=== PATIENT | male | born 1990 | race Hispanic/Latino ===

== ENCOUNTER 2019-09-06 01:52 | Inpatient (IN) | payer SELFPAY ==
[2019-09-06] MEDS ORDERED: MORPHINE 4 MG/ML SYR ONE (02:43)
[2019-09-06] MEDS ORDERED: ONDANSETRON 4 MG/2 ML VIAL ONE ×2 (02:43→09:29)
[2019-09-06] MEDS ORDERED: NA CHLORIDE 0.9% 1,000 ML ONE (02:43)
[2019-09-06] MEDS ORDERED: FAMOTIDINE 20 MG/2 ML VIAL IV ONE (02:43)
[2019-09-06 03:13] LABS: Basophils % 0.2 % (0-1.3); Hematocrit 46.5 % (39.6-49.0); Lymphocytes % 16.1 % (15.3-44.8); MPV 7.7 fL (7.6-11.3); RBC Red Blood Cell Count 5.24 M/uL (4.33-5.43)
[2019-09-06 03:19] LABS: Albumin 4.1 g/dL (3.4-5.0); Bilirubin Direct 0.2 mg/dL (0-0.2); Bilirubin Total 0.6 mg/dL (0.2-1.0); Potassium 3.7 mmol/L (3.5-5.1); Protein, Total 7.6 g/dL (6.4-8.2)
--- NOTE | 2019-09-06 05:21 | ER ---
Nurse's Notes [facility] Name: Mariusz Brown Age: 29 yrs Sex: Male : 1990 Arrival Date: 09/06/2019 Time: 02:08 Bed 13 Private MD: Diagnosis: Abdominal tenderness;Acute appendicitis;Elevated white blood cell count Presentation: 09/06 02:24 Presenting complaint: Patient states: "I think I have food poisoning" Abd pain started dm5 4 hours ago, vomited 7 times since this morning. the first three times "I forced myself to vomit". Transition of care: patient was not received from another setting of care. Onset of symptoms was September 06, 2019. Risk Assessment: Do you want to hurt yourself or someone else?. 02:24 Acuity: TOYIN 3 dm5 02:24 Method Of Arrival: Ambulatory dm5 03:09 Initial Sepsis Screen: Does the patient meet any 2 criteria? No. Patient's initial sepsis screen is negative. Does the patient have a suspected source of infection? Yes: Acute abdominal pain. Care prior to arrival: None. Triage Assessment: 03:08 General: Behavior is calm, cooperative, appropriate for age. Historical: - Allergies: 02:26 No Known Allergies; dm5 - Home Meds: 02:26 None [Active]; dm5 - PMHx: 02:26 None; dm5 - PSHx: 02:26 None; dm5 - Immunization history:: Adult Immunizations not up to date. - Social history:: Smoking status: Patient/guardian denies using. - Family history:: not pertinent. - Ebola Screening: : Patient negative for fever greater than or equal to 101.5 degrees Fahrenheit, and additional compatible Ebola Virus Disease symptoms Patient denies exposure to infectious person. Screenin:05 Abuse screen: Denies threats or abuse. Denies injuries from another. Nutritional screening: No deficits noted. Tuberculosis screening: No symptoms or risk factors identified. Fall Risk None identified. Assessment: 03:03 General: Appears in no apparent distress. uncomfortable. Pain: Complains of pain in left upper quadrant and right upper quadrant and epigastric area Pain does not radiate. Pain currently is 9 out of 10 on a pain scale. Quality of pain is described as aching, Pain began 4 hours ago. Neuro: Level of Consciousness is awake, alert, obeys commands, Oriented to person, place, time, situation, Appropriate for age. Cardiovascular: Heart tones S1 S2. Respiratory: Airway is patent Respiratory effort is even, unlabored, Respiratory pattern is regular, symmetrical, Breath sounds are clear bilaterally. GI: Abdomen is flat, non-distended, Bowel sounds present X 4 quads. Abd is soft and non tender X 4 quads. Reports upper abdominal pain, nausea, vomiting. : No signs and/or symptoms were reported regarding the genitourinary system. EENT: No signs and/or symptoms were reported regarding the EENT system. Derm: Skin is intact, is healthy with good turgor, Skin is pink, warm \\T\\ dry. normal. Musculoskeletal: Circulation, motion, and sensation intact. 04:00 Reassessment: Patient appears in no apparent distress at this time. No changes from wh previously documented assessment. Patient and/or family updated on plan of care and expected duration. Pain level reassessed. Patient is alert, oriented x 3, equal unlabored respirations, skin warm/dry/pink. 05:16 General: Appears in no apparent distress. uncomfortable. Pain: Complains of pain in jv1 left upper quadrant and right upper quadrant and epigastric area. Neuro: Level of Consciousness is awake, alert, obeys commands, Oriented to person, place, time, situation, Appropriate for age. Cardiovascular: Heart tones S1 S2. Respiratory: Airway is patent Respiratory effort is even, unlabored, Respiratory pattern is regular, symmetrical, GI: Abdomen is flat, non-distended, Bowel sounds present X 4 quads. Abd is soft and non tender X 4 quads. Reports upper abdominal pain, nausea. : No signs and/or symptoms were reported regarding the genitourinary system. EENT: No signs and/or symptoms were reported regarding the EENT system. Derm: Skin is intact, is healthy with good turgor, Skin is pink, warm \\T\\ dry. normal. Musculoskeletal: Circulation, motion, and sensation intact. Vital Signs: 02:26 BP 126 / 89; Pulse 68; Resp 18; Pulse Ox 100% on R/A; Weight 99.79 kg; Height 5 ft. 6 dm5 in. (167.64 cm); Pain 8/10; 03:09 BP 113 / 76; Pulse 69; Resp 18; Pulse Ox 100% on R/A; 05:00 BP 112 / 74; Pulse 61; Resp 18; Pulse Ox 100% ; 02:26 Body Mass Index 35.51 (99.79 kg, 167.64 cm) dm5 ED Course: 02:08 Patient arrived in ED. jg7 02:15 Zan Carballo MD is Attending Physician. [facility] 02:22 Michael Aaron is Primary Nurse. 02:25 Triage completed. dm5 02:26 Arm band placed on right wrist. Patient placed in an exam room. dm5 02:40 Inserted saline lock: 20 gauge in right antecubital area, using aseptic technique. Blood collected. 02:49 Chest Single View XRAY In Process Unspecified. EDMS 03:08 Patient has correct armband on for positive identification. Placed in gown. Bed in low wh position. Call light in reach. Side rails up X 1. Pulse ox on. NIBP on. 04:34 CT Abd/Pelvis - PO and IV Contrast In Process Unspecified. EDMS 05:19 Enmanuel Deshpande MD is Hospitalizing Provider. [facility] 06:00 No provider procedures requiring assistance completed. Patient admitted, IV remains in place. Administered Medications: 02:48 Drug: NS 0.9% 1000 ml Route: IV; Rate: 1 bolus; Site: right antecubital; 05:39 Follow up: Response: No adverse reaction; IV Status: Completed infusion 02:50 Drug: Pepcid 20 mg Route: IVP; Site: right antecubital; 05:38 Follow up: Response: No adverse reaction 02:52 Drug: Zofran 4 mg Route: IVP; Site: right antecubital; 05:38 Follow up: Response: No adverse reaction; Nausea is decreased 05:00 Drug: morphine 4 mg Route: IVP; Site: right antecubital; 05:38 Follow up: Response: No adverse reaction; Pain is decreased; RASS: Alert and Calm (0) 05:38 Drug: Zosyn 3.375 grams Route: IVPB; Infused Over: 60 mins; Site: right antecubital; 06:05 Follow up: Response: No adverse reaction; IV Status: Infusion continued upon admission Outcome: 05:20 Decision to Hospitalize by Provider. annette 06:01 Admitted to Med/surg accompanied by tech, family with patient, via wheelchair, room wh 209, with chart, Report called to Trinidad Macedo RN 06:01 Condition: stable 06:01 Instructed on the need for admit. 06:08 Patient left the ED. Signatures: Dispatcher [employer] EDMS Ashia Virk, RN RN dm5 Zan Carballo MD MD cha Habalo, [facility] Gabriella Tan RN RN jv1 Kirstin Marquezg7
--- NOTE | 2019-09-06 05:21 | EDPHYS ---
Physician Documentation [facility] Name: Mariusz Brown Age: 29 yrs Sex: Male : 1990 Arrival Date: 09/06/2019 Time: 02:08 Bed 13 Private MD: ED Physician Zan Carballo HPI: 09/06 02:34 This 29 yrs old Male presents to ER via Ambulatory with complaints of annette Abdominal Pain. 02:34 The patient presents with abdominal pain in the epigastric area, in the upper abdomen. annette Onset: The symptoms/episode began/occurred 4 hour(s) ago. The symptoms do not radiate. Associated signs and symptoms: Pertinent positives: nausea and vomiting. The symptoms are described as constant, crampy. Modifying factors: The symptoms are alleviated by nothing, the symptoms are aggravated by nothing. Severity of pain: At its worst the pain was moderate in the emergency department the pain is unchanged. The patient has not experienced similar symptoms in the past. Historical: - Allergies: 02:26 No Known Allergies; dm5 - Home Meds: 02:26 None [Active]; dm5 - PMHx: 02: None; dm5 - PSHx: 02:26 None; dm5 - Immunization history:: Adult Immunizations not up to date. - Social history:: Smoking status: Patient/guardian denies using. - Family history:: not pertinent. - Ebola Screening: : Patient negative for fever greater than or equal to 101.5 degrees Fahrenheit, and additional compatible Ebola Virus Disease symptoms Patient denies exposure to infectious person. ROS: 02:34 Constitutional: Negative for fever, chills, and weight loss, Eyes: Negative for injury, annette pain, redness, and discharge, ENT: Negative for injury, pain, and discharge, Neck: Negative for injury, pain, and swelling, Cardiovascular: Negative for chest pain, palpitations, and edema, Respiratory: Negative for shortness of breath, cough, wheezing, and pleuritic chest pain, Back: Negative for injury and pain, : Negative for injury, bleeding, discharge, and swelling, MS/Extremity: Negative for injury and deformity, Skin: Negative for injury, rash, and discoloration, Neuro: Negative for headache, weakness, numbness, tingling, and seizure, Psych: Negative for depression, anxiety, suicide ideation, homicidal ideation, and hallucinations, Allergy/Immunology: Negative for hives, rash, and allergies, Endocrine: Negative for neck swelling, polydipsia, polyuria, polyphagia, and marked weight changes, Hematologic/Lymphatic: Negative for swollen nodes, abnormal bleeding, and unusual bruising. 02:34 Abdomen/GI: Positive for abdominal pain, of the epigastric area, right upper quadrant and left upper quadrant. Exam: 02:34 Constitutional: This is a well developed, well nourished patient who is awake, alert, annette and in no acute distress. Head/Face: Normocephalic, atraumatic. Eyes: Pupils equal round and reactive to light, extra-ocular motions intact. Lids and lashes normal. Conjunctiva and sclera are non-icteric and not injected. Cornea within normal limits. Periorbital areas with no swelling, redness, or edema. ENT: Nares patent. No nasal discharge, no septal abnormalities noted. Tympanic membranes are normal and external auditory canals are clear. Oropharynx with no redness, swelling, or masses, exudates, or evidence of obstruction, uvula midline. Mucous membranes moist. Neck: Trachea midline, no thyromegaly or masses palpated, and no cervical lymphadenopathy. Supple, full range of motion without nuchal rigidity, or vertebral point tenderness. No Meningismus. Chest/axilla: Normal chest wall appearance and motion. Nontender with no deformity. No lesions are appreciated. Cardiovascular: Regular rate and rhythm with a normal S1 and S2. No gallops, murmurs, or rubs. Normal PMI, no JVD. No pulse deficits. Respiratory: Lungs have equal breath sounds bilaterally, clear to auscultation and percussion. No rales, rhonchi or wheezes noted. No increased work of breathing, no retractions or nasal flaring. Back: No spinal tenderness. No costovertebral tenderness. Full range of motion. Male : Normal genitalia with no discharge or lesions. Skin: Warm, dry with normal turgor. Normal color with no rashes, no lesions, and no evidence of cellulitis. MS/ Extremity: Pulses equal, no cyanosis. Neurovascular intact. Full, normal range of motion. Neuro: Awake and alert, GCS 15, oriented to person, place, time, and situation. Cranial nerves II-XII grossly intact. Motor strength 5/5 in all extremities. Sensory grossly intact. Cerebellar exam normal. Normal gait. Psych: Awake, alert, with orientation to person, place and time. Behavior, mood, and affect are within normal limits. 02:34 Abdomen/GI: Inspection: abdomen appears normal, Bowel sounds: normal, Palpation: moderate abdominal tenderness, in the epigastric area, right upper quadrant and left upper quadrant, Liver: no appreciated palpable abnormalities, Hernia: not appreciated. Vital Signs: 02:26 BP 126 / 89; Pulse 68; Resp 18; Pulse Ox 100% on R/A; Weight 99.79 kg; Height 5 ft. 6 dm5 in. (167.64 cm); Pain 8/10; 03:09 BP 113 / 76; Pulse 69; Resp 18; Pulse Ox 100% on R/A; wh 05:00 BP 112 / 74; Pulse 61; Resp 18; Pulse Ox 100% ; 02:26 Body Mass Index 35.51 (99.79 kg, 167.64 cm) dm5 MDM: 02:26 Patient medically screened. [facility] 02:39 Data reviewed: vital signs, nurses notes, lab test result(s), EKG, radiologic studies, [facility] CT scan, plain films. 09/06 02:33 Order name: Basic Metabolic Panel; Complete Time: 04:07 [facility] 09/06 02:33 Order name: CBC with Diff; Complete Time: 03:18 [facility] 09/06 02:33 Order name: Creatinine for Radiology; Complete Time: 04:07 [facility] 09/06 02:33 Order name: Hepatic Function; Complete Time: 04:07 [facility] 09/06 02:33 Order name: Lipase; Complete Time: 04:07 [facility] 09/06 02:33 Order name: Chest Single View XRAY [facility] 09/06 02:33 Order name: IV Saline Lock; Complete Time: 02:36 [facility] 09/06 02:33 Order name: CT Abd/Pelvis - PO and IV Contrast [facility] 09/06 02:33 Order name: Labs collected and sent; Complete Time: 02:36 [facility] Administered Medications: 02:48 Drug: NS 0.9% 1000 ml Route: IV; Rate: 1 bolus; Site: right antecubital; 05:39 Follow up: Response: No adverse reaction; IV Status: Completed infusion 02:50 Drug: Pepcid 20 mg Route: IVP; Site: right antecubital; 05:38 Follow up: Response: No adverse reaction 02:52 Drug: Zofran 4 mg Route: IVP; Site: right antecubital; 05:38 Follow up: Response: No adverse reaction; Nausea is decreased 05:00 Drug: morphine 4 mg Route: IVP; Site: right antecubital; 05:38 Follow up: Response: No adverse reaction; Pain is decreased; RASS: Alert and Calm (0) 05:38 Drug: Zosyn 3.375 grams Route: IVPB; Infused Over: 60 mins; Site: right antecubital; 06:05 Follow up: Response: No adverse reaction; IV Status: Infusion continued upon admission Disposition: 09/06/19 05:20 Hospitalization ordered by Enmanuel Deshpande for Observation. Preliminary diagnosis are Abdominal tenderness, Acute appendicitis, Elevated white blood cell count. - Bed requested for Telemetry/MedSurg (observation). - Status is Observation. - Condition is Stable. - Problem is new. - Symptoms have improved. UTI on Admission? No Signatures: Dispatcher [employer] EDAshia Pastor RN RN dm5 Marla Medina RN RN mw Anderson, Corey, MD MD cha Habalo, Winsy Corrections: (The following items were deleted from the chart) 05:31 05:20 Hospitalization Ordered by Enmanuel Deshpande MD for Observation. Preliminary diagnosis mw is Abdominal tenderness; Acute appendicitis; Elevated white blood cell count. Bed requested for Telemetry/MedSurg (observation). Status is Observation. Condition is Stable. Problem is new. Symptoms have improved. UTI on Admission? No. [facility] 06:08 05:31 09/06/2019 05:20 Hospitalization Ordered by Enmanuel Deshpande MD for Observation. Preliminary diagnosis is Abdominal tenderness; Acute appendicitis; Elevated white blood cell count. Bed requested for Telemetry/MedSurg (observation). Status is Observation. Condition is Stable. Problem is new. Symptoms have improved. UTI on Admission? No. gurdeep
[2019-09-06] MEDS ORDERED: PIPER/TAZO/NS 3.375gm 3.375 GM/100 ML BAG ONE (05:28)
[2019-09-06 06:30] VITALS: BMI 31.6
[2019-09-06] MEDS ORDERED: ONDANSETRON 4 MG/2 ML VIAL IV PRN ×2 (06:40→10:49)
[2019-09-06] MEDS: D5 0.45 NS 1,000 ML IV SCH ×2 (06:40→13:47)
[2019-09-06] MEDS ORDERED: MORPHINE 4 MG/ML SYR IV PRN (06:40)
[2019-09-06] MEDS ORDERED: ACETAMINOPHEN 325 MG TABLET PO PRN (07:07)
--- NOTE | 2019-09-06 08:01 | RAD REPORT ---
EXAM DESCRIPTION: Alcira Single View09/06/2019 2:49 am CLINICAL HISTORY: Abdominal pain COMPARISON: none FINDINGS: The lungs appear clear of acute infiltrate. The heart is normal size IMPRESSION: No acute abnormalities displayed
[2019-09-06] MEDS ORDERED: FAMOTIDINE 20 MG/2 ML VIAL IV SCH ×2 (09:00→21:00)
[2019-09-06] MEDS ORDERED: Ringers Lactate 1,000 ML IV ONE (09:10)
--- NOTE | 2019-09-06 09:24 | PREOPHP ---
Date of Admission: 09/06/2019 Chief Complaint: Abdominal pain. History Of Present Illness: Patient is a 29-year-old male with epigastric abdominal pain associated with nausea and vomiting since last night. No diarrhea or constipation. No blood in his stool. No dysuria, hematuria. No sore throat, runny nose, cough, headaches, or dizziness. No chest pain. No fever or chills. Review of Systems: Otherwise unremarkable. Past Medical History: Negative. Past Surgical History: Right hand surgery. Allergies: NONE. Social History: Patient denies smoking or drinking. Family History: Noncontributory except for hypertension in the father. Physical Examination: Vital Signs: Stable. He is afebrile. General: He is awake, alert, and oriented x3. Head and Neck: Cranial nerves 2 through 12 are grossly within normal limits. No neck masses. No JV D. Throat clear. Neck is supple. Chest: Clear. Heart: S1, S2. Abdomen: Soft. Positive Rovsing sign. Positive tenderness with minimal rebound in the right lower quadrant. No rigidity or guarding. Extremities: Adequately perfused and nontender. Neuro: Nonfocal. Imaging Data: CT of the abdomen and pelvis reviewed consistent with acute appendicitis with appendic olith. Laboratory Data: Shows slight leukocytosis of 12.7 with a left shift. Chemistry reviewed, essential ly within normal limits. Glucose is slightly high at 119. Assessment: Acute appendicitis. Plan: Admit n.p.o., IV fluid, IV antibiotic, to the OR for laparoscopic appendectomy, possibly open. Patient understands the risks, benefits, and alternatives and agrees to procedure. NICOLASA/MODL Voice ID: [id number]
[2019-09-06] MEDS ORDERED: FENTANYL CITR 100 MCG/2 ML ONE ×2 (09:27→10:07)
[2019-09-06] MEDS ORDERED: propofoL 200 MG/20 ML VIAL IV ONE (09:28)
[2019-09-06] MEDS ORDERED: MIDAZOLAM HCL 2 MG/2 ML INJ ONE (09:28)
[2019-09-06] MEDS ORDERED: LIDOCAINE 2% MPF 5 ML VIAL ONE (09:28)
[2019-09-06] MEDS ORDERED: GLYCOPYRROLATE 0.2 MG/ML SYR ONE (09:29)
[2019-09-06] MEDS ORDERED: NEOSTIGMINE 1 MG/ML -5 ML ONE (09:30)
[2019-09-06] MEDS ORDERED: ROCURONIUM 50 MG/5 ML VIAL IV ONE (09:31)
[2019-09-06] MEDS ORDERED: CEFOXITIN/SWI 1gm 1 GM/10 ML SYR ONE (10:04)
--- NOTE | 2019-09-06 10:24 | P.OP ---
Candle Pourer: Edmond MANUEL Preoperative diagnosis: Acute Appendicitis Postoperative diagnosis: same Primary procedure: Lap Appy Anesthesia: General Estimated blood loss: min Specimen: Appy Findings: as above Complications: None Transferred to: Recovery Room Condition: Good
[2019-09-06] MEDS ORDERED: HYDROMORPHONE HCL 1 MG/ML INJ IV PRN (10:49)
[2019-09-06] MEDS ORDERED: D5 0.45 NS 1,000 ML IV ONE (10:59)
[2019-09-06] MEDS: PIPER/TAZO/NS 3.375gm 3.375 GM/100 ML BAG IVPB SCH ×2 (11:00→16:29)
[2019-09-06] MEDS ORDERED: HYDROMORPHONE HCL 1 MG/ML INJ ONE (11:12)
[2019-09-06] MEDS ORDERED: PIPER/TAZO/NS 3.375gm 3.375 GM/100 ML BAG IVPB SCH (12:00)
--- NOTE | 2019-09-06 12:14 | RAD REPORT ---
EXAM DESCRIPTION: CT - Abdomen Pelvis W Contrast - 09/06/2019 4:34 am CLINICAL HISTORY: Abdominal pain. COMPARISON: None. TECHNIQUE: Axial CT imaging of the abdomen and pelvis performed with intravenous contrast. Reformatt ed coronal and sagittal images reviewed. A dose reduction technique was utilized with automated exposure control according to patient size. FINDINGS: The appendix is diffusely dilated within the right lower quadrant with a maximum central d iameter of 1.6 cm. There is mild periappendiceal edema. There are a few intraluminal appendicoliths u p to 1.1 cm. Normal liver and gallbladder. Spleen is mildly enlarged at 13.1 cm. Normal pancreas, adrenal glands, kidneys. Normal aorta and inferior vena cava caliber. Mesenteric vessels appear normal. No adenopathy . Normal stomach and small bowel. Normal colon. No ascites or free air. No mesenteric adenopathy. Nonen larged right lower quadrant periappendiceal lymph nodes are present. Normal bladder and prostate. No pelvic free fluid. Normal lumbar alignment. Small superior endplate S chmorl's nodes at T12 and L1. Intact bony pelvis. Normal hips. IMPRESSION: 1. Acute appendicitis with a few appendicoliths. No abscess or free air. 2. Mild splenomegaly. Electronically signed by: Nallely Turpin DO 09/06/2019 5:10 AM RAISIN SEPARATOR OPERATOR Due to temporary technical issues with the PACS/Fluency reporting system, reports are being signed by the in house radiologist as a courtesy to ensure prompt reporting. The interpreting radiologist is f ully responsible for the content of the report.
--- NOTE | 2019-09-06 17:29 | OP ---
Date of Procedure: 09/06/2019 Surgeon: Enmanuel Deshpande MD Bridge Inspector: MAR Aguilera Preoperative Diagnosis: Acute appendicitis. Postoperative Diagnosis: Acute appendicitis. Procedure: Laparoscopic appendectomy. Estimated Blood Loss: Minimal. Specimen: Appendix. Findings: As above. Anesthesia: General. Complications: None. Patient tolerated the procedure in stable condition, taken to Recovery in good general condition. Description Of Procedure: Patient was brought to the OR and placed in supine position. General anes thesia was begun. Patient was prepped and draped in the usual sterile fashion. Marcaine 0.5% was in filtrated locally. A 15-blade was used to make a 1 cm supraumbilical midline incision. Subcutaneous tissue was divided. Fascia was identified and divided. A #1 Vicryl stay suture was placed. Perito isauro cavity was entered with sharp and blunt dissection. A 12 mm trocar was placed into the peritone al cavity under direct vision. Pneumoperitoneum was established. Then, two 5 mm trocars were placed , 1 in the suprapubic region, 1 in the left lower quadrant. Laparoscopy revealed a distended, inflam ed appendix with some mild suppuration. Base of the appendix on the cecum and the mesoappendix clear ly identified. Endo-LINH stapling device was used to divide both structures and then the appendix was retrieved through the umbilicus via an EndoCatch bag. The right lower quadrant and pelvis were exam ined carefully. No evidence of bleeding or bowel injury appreciated. Subsequently, all trocars were removed under direct vision. Stay sutures were tied to each other across the fascial defect. Subcu taneous wounds were irrigated. Bleeding controlled with cautery. A 3-0 chromic used to approximate the subcutaneous tissue and wyatt used to close the skin. Sterile dressing was applied. Patient w as awakened and taken to Recovery in good general condition. /MODL Voice ID: [id number] Report ID: [id number]
[2019-09-06] MEDS: HYDROCODONE/APAP 7.5/325 MG TAB PO PRN ×2 (18:15→23:19)
[2019-09-06 21:31] VITALS: O2SAT 96
[2019-09-07] MEDS: PIPER/TAZO/NS 3.375gm 3.375 GM/100 ML BAG IVPB SCH ×2 (00:13→08:07)
[2019-09-07] MEDS: D5 0.45 NS 1,000 ML IV SCH ×2 (00:14→06:33)
[2019-09-07 04:21] VITALS: TEMP 97.2
[2019-09-07 05:49] LABS: Basophils % 0.2 % (0-1.3); Hematocrit 37.8 % (39.6-49.0); Lymphocytes % 22.4 % (15.3-44.8); MPV 7.6 fL (7.6-11.3); RBC Red Blood Cell Count 4.28 M/uL (4.33-5.43)
[2019-09-07] MEDS: HYDROCODONE/APAP 7.5/325 MG TAB PO PRN (08:07)
[2019-09-07 08:44] VITALS: BP 115/80
--- NOTE | 2019-09-07 21:52 | DS ---
Date of Discharge: 09/07/2019 Admitting Diagnosis: Acute appendicitis. Discharge Diagnosis: Acute appendicitis. Procedure Performed: Laparoscopic appendectomy. Hospital Course: The patient is a 29-year-old gentleman, who came in with acute appendicitis, had an appendectomy performed. Postoperatively, he is tolerating diet, ambulating, pain controlled with p. o. pain medication, afebrile. White count is normalized, therefore patient will be discharged to [facility]. Disposition: Home. Condition: Stable. Discharge Instructions: Resume home medications and diet. Activity as tolerated. No heavy lifting. Remove outer dressing in a.m. Shower. Keep wound clean and dry. Follow up in my office in 1 week . Call for appointment. Tylenol No. 3 one tablet p.o. q.4 p.r.n. pain, Augmentin 875 p.o. b.i.d. NICOLASA/SAVANAH Voice ID: [id number] Report ID: [id number]
== END 2019-09-07 11:15 | disposition home or self-care (01) | DRG 343 ==
LOC: ER 01:52 → ERHOLD 05:21 → 2ND 05:53 → OBSVTOIN 17:10
PROVIDERS: ADMIT Surgery; ATTEND Surgery
PROC: 0DTJ4ZZ Resection of Appendix, Percutaneous Endoscopic Approach (ICD-10-PCS; principal; 2019-09-06 09:15)
DX: K35.80 Unspecified acute appendicitis (principal); K38.1 Appendicular concretions
CPT/HCPCS: 36415; 71045; 74177; 80048; 80076; 83690; 85025; 88304; 96361; 96365; 96375; 99285; G0378; J1170; J2250; J2405; J2543; J2704; J2710; J3010; J7030; J7120; J7799; Q9967